=== PATIENT | female | born 1950 | race Caucasian/White ===

== ENCOUNTER 2017-12-08 08:11 | Day surgery (SDC) | payer MEDICARE, BC ==
[~2017-12-08 08:11] MED LIST: Lactated Ringers 1,000 ML IV SCH; Midazolam 1 MG/ML 2 ML SDV ONE; Propofol 200 MG/20 ML SDV ONE; Sodium Chloride 0.9% 10 ML Syringe FLUSH PRN; fentaNYL 100 MCG/2 ML SDV ONE
[2017-12-08] MEDS ORDERED: fentaNYL 100 MCG/2 ML SDV ONE (09:22)
[2017-12-08] MEDS ORDERED: Propofol 200 MG/20 ML SDV ONE (09:22)
[2017-12-08] MEDS ORDERED: Midazolam 1 MG/ML 2 ML SDV ONE (09:22)
[2017-12-08] MEDS ORDERED: Lidocaine 2% 5 ML SDV ONE (09:22)
--- NOTE | 2017-12-08 09:29 | PCM.PN ---
- General Info Date of Service: 12/08/17 - Review of Systems Systems Review Comment:: 67-year-old female referred by Nguyen Diaz for EGD and colonoscopy. She has a history of heartburn. She also has a known history of colon polyps and her father had ulcerative colitis. She is medically stable to proceed with the proposed procedures today. I have reviewed her recent history and physical and there is no significant change noted from that time. I have discussed the proposed operative procedures with the patient. She has good understanding of the procedures and agrees to proceed accepting risks. - Patient Data Vitals - Most Recent: Last Vital Signs Temp 97.4 F 12/08/17 09:08 Pulse 80 12/08/17 09:08 Resp 20 12/08/17 09:08 BP 120/77 12/08/17 09:08 Pulse Ox 94 L 12/08/17 09:08 Weight - Most Recent: 86.183 kg Med Orders - Current: Current Medications Lactated Ringer's (Ringers, Lactated) 1,000 mls @ 125 mls/hr IV ASDIRECTED CHRISTY Last Admin: 12/08/17 09:00 Dose: 125 mls/hr Sodium Chloride (Saline Flush) 10 ml FLUSH ASDIRECTED PRN PRN Reason: Keep Vein Open Discontinued Medications Fentanyl (Sublimaze) Confirm Administered Dose 100 mcg .ROUTE .STK-MED ONE Stop: 12/08/17 08:11 Midazolam HCl (Versed 1 Mg/Ml) Confirm Administered Dose 2 mg .ROUTE .STK-MED ONE Stop: 12/08/17 08:11 Propofol (Diprivan 20 Ml) Confirm Administered Dose 400 mg .ROUTE .STK-MED ONE Stop: 12/08/17 08:12 - Problem List Review Problem List Initiated/Reviewed/Updated: Yes - Assessment Assessment:: Heartburn History of colon polyps Family history of ulcerative colitis - Plan Plan:: EGD and colonoscopy
--- NOTE | 2017-12-08 10:22 | PCM.OPNOTE ---
- General Post-Op/Procedure Note Date of Surgery/Procedure: 12/08/17 Operative Procedure(s): EGD with Bx and Colonoscopy Findings: Reflux esophagitis Diverticulosis Hemorrhoids Pre Op Diagnosis: GERD. History of colon polyps Post-Op Diagnosis: Reflux Esophagitis. Diverticulosis of the colon. hemorrhoids Anesthesia Technique: MAC Primary Surgeon: Rito Flores Pathology: Biopsies of Gastric Antrum and GE Jct EBL in mLs: 3 Complications: None Condition: Good Free Text/Narrative:: Intake & Output 12/07/17 12/08/17 12/08/17 22:59 06:59 14:59 Intake Total 800 Balance 800
--- NOTE | 2017-12-08 15:44 | OR ---
Date of Procedure: 12/08/2017 PREOPERATIVE DIAGNOSES: Gastroesophageal reflux disease and history of colon polyps. POSTOPERATIVE DIAGNOSES: Reflux esophagitis, diverticulosis of the colon, and hemorrhoids. OPERATIONS PERFORMED: Esophagogastroduodenoscopy with biopsy and colonoscopy. INDICATIONS FOR SURGERY: This is a 67-year-old female who has been having some increased symptoms of acid reflux. She also has a history of colon polyps and family history of ulcerative colitis in her father. FINDINGS: On upper endoscopy, the patient does have some irritation and irregularity of the GE junction. This is consistent with acid reflux. The remainder of the esophagus, stomach, and duodenum appeared normal. On colonoscopy, the patient has extensive left-sided diverticulosis, although this does not appear to be acutely inflamed, or otherwise, complicated at this time. There are also moderate-sized hemorrhoids. PROCEDURE IN DETAIL: The patient was taken to the operating room. She was given intravenous sedation, and her throat was topically anesthetized. The esophagus was intubated with an Olympus gastroscope. It was carefully advanced under direct visualization through the esophagus, stomach, and down into the duodenum where examination to the fourth portion is performed. After examining the duodenum, the scope was withdrawn into the stomach where full examination including retroflexed examination of the fundus was carried out. Biopsies of the antrum were taken to rule out H. pylori. The GE junction and distal esophagus are carefully examined. There was some inflammation and irregularity of the GE junction, and biopsies of this area are taken as well. The esophagus was then examined as the scope was withdrawn, and the scope was removed. Attention was turned to colonoscopy where digital rectal exam was performed, showing no rectal masses. The Olympus colonoscope was inserted into the rectum. Retroflexed examination of the rectal canal was performed. The scope was then carefully advanced under direct visualization through the entire length of the colon until the cecum was reached. Cecal acquisition is confirmed by noting the normal internal cecal anatomy and including the appendiceal orifice and ileocecal valve, and the light is also noted to transilluminate the abdominal wall and the right lower quadrant. After examining the cecum, the scope was slowly withdrawn sequentially re-examining the colonic segments until the entire colon and rectum have been fully examined. The scope was then removed, and the patient was taken from the operating room in satisfactory condition. ESTIMATED BLOOD LOSS: 3 mL. COMPLICATIONS: None. PROGNOSIS: Good. BRIANA Flores MD /[id number]
== END 2017-12-08 11:42 | disposition home or self-care (01) ==
LOC: LL.SDS 08:11
PROVIDERS: ATTEND Surgery
DX: Z12.11 Encounter for screening for malignant neoplasm of colon (principal); K21.9 Gastro-esophageal reflux disease without esophagitis; K57.30 Diverticulosis of large intestine without perforation or abscess without bleeding; K64.9 Unspecified hemorrhoids; K29.50 Unspecified chronic gastritis without bleeding; Z80.0 Family history of malignant neoplasm of digestive organs; E78.5 Hyperlipidemia, unspecified; Z86.718 Personal history of other venous thrombosis and embolism; M81.0 Age-related osteoporosis without current pathological fracture; Z86.010 Personal history of colon polyps; Z90.710 Acquired absence of both cervix and uterus; Z90.722 Acquired absence of ovaries, bilateral; Z79.899 Other long term (current) drug therapy; Z88.8 Allergy status to other drugs, medicaments and biological substances; Z88.0 Allergy status to penicillin
CPT/HCPCS: 00813; 43239; 45378; J2250; J2704; J3010; J7120; 88305

== ENCOUNTER 2023-01-27 11:37 | Day surgery (SDC) | payer MEDICARE, BC ==
[~2023-01-27 11:37] MED LIST changes: -Lactated Ringers 1,000 ML IV SCH; -Sodium Chloride 0.9% 10 ML Syringe FLUSH PRN; -fentaNYL 100 MCG/2 ML SDV ONE
[2023-01-27] MEDS: Lactated Ringers 1,000 ML IV SCH (12:01)
[2023-01-27] MEDS ORDERED: Sodium Chloride 0.9% 10 ML Syringe FLUSH PRN (12:45)
== END 2023-01-27 15:00 | disposition home or self-care (01) ==
LOC: LL.SDS 11:37
PROVIDERS: ATTEND Surgery
DX: Z12.11 Encounter for screening for malignant neoplasm of colon (principal); K51.90 Ulcerative colitis, unspecified, without complications; K57.30 Diverticulosis of large intestine without perforation or abscess without bleeding; K64.9 Unspecified hemorrhoids; I10 Essential (primary) hypertension; E78.5 Hyperlipidemia, unspecified; K21.9 Gastro-esophageal reflux disease without esophagitis; E66.09 Other obesity due to excess calories; Z68.31 Body mass index [BMI] 31.0-31.9, adult; Z86.010 Personal history of colon polyps; Z87.891 Personal history of nicotine dependence; Z86.718 Personal history of other venous thrombosis and embolism; Z79.899 Other long term (current) drug therapy; Z88.0 Allergy status to penicillin
CPT/HCPCS: 00812; J2250; J2704; J7120